=== PATIENT | male | born 1960 | race Caucasian/White ===

== ENCOUNTER 2023-01-16 15:15 | Emergency (ER) | payer MEDICAID ==
[~2023-01-16] VITALS: Ht 157.5 cm; Wt 66.2 kg
[2023-01-16 15:23] VITALS: BP 148/89
--- NOTE | 2023-01-16 15:50 | NUR ---
62YO MALE PT C/O URINARY RETENTION AND URGENCY XYESTERDAY. REPORTS ONSET ALONG W/ PRESSURED 2/10 LOWER ABD TO BACK PAIN. DENIES FEVER,CHILLS, N/V/D, CHEST PAIN OR SOB.PT AAOX4, HOB POSITIONED PER COMFORT HX: DENIES NKA
--- NOTE | 2023-01-16 19:10 | NUR ---
PT RC'D FROM DAY SHIFT NURSE, IN BED 5. PT RESTING IN BED. 650 MLS OF URINE EMPTIED FROM THE SPENCER BAG.
[2023-01-16 19:14] LABS: APPEARANCE,URINE CLEAR (CLEAR); BILIRUBIN,URINE NEGATIVE (NEGATIVE); BLOOD, URINE 1+ (NEGATIVE); COLOR,URINE YELLOW (YELLOW); LEUKOCYTE ESTERASE ,URINE NEGATIVE (NEGATIVE); NITRITE, URINE NEGATIVE (NEGATIVE); UGLUCOSE NEGATIVE (NEGATIVE)
--- NOTE | 2023-01-16 19:16 | NUR ---
REPORT GIVEN TO IGNACIO العراقي. TRANSFER OF CARE AT THIS TIME
[2023-01-16 19:27] LABS: WBC,URINE 0-5 /HPF (0-5); YEAST,URINE None Seen /HPF (None Seen)
[2023-01-16 19:28] LABS: TRICHOMONAS,URINE None Seen /HPF (None Seen)
[2023-01-16 19:57] VITALS: BP 135/89
--- NOTE | 2023-01-16 19:57 | NUR ---
Patient discharged with v/s stable. Written and verbal after care instructions given and explained. Patient verbalized understanding. Ambulatory with steady gait. All questions addressed prior to discharge. Advised to follow up with PMD.
== END 2023-01-16 19:57 | disposition home or self-care (01) ==
LOC: MED 15:15
DX: R33.9 Retention of urine, unspecified (principal)
CPT/HCPCS: 51702; 81001; 99285